=== PATIENT | male | born 1960 | race Caucasian/White ===

== ENCOUNTER → 2016-09-13 | Outpatient (CLI) | payer BC ==
--- NOTE | 2016-09-14 05:36 | PN ---
A 36-year-old male patient coming in for annual followup regarding obstructive sleep apnea treatment. The patient is on CPAP with a pressure of 12 cm of water. He was diagnosed having severe MICHELLE with an AHI of 70. On today's evaluation, the patient has lost around 19 pounds since his last evaluation last year. He was diagnosed having a left shoulder melanoma that was surgically resected. He was also diagnosed having diabetes mellitus currently on oral hypoglycemics and he was started on metformin. He is using his CPAP treatment every night. His CPAP use for the past 30 days 100% and he is averaging around 8.8 hours of CPAP use every night. Leak factor is around 16 L per minute and his AHI while on treatment is down to 0.3. He is requesting a heated hose. No other complaints otherwise for now. Waking up alert and refreshed during the day. He is averaging as much or more than 8 hours of sleep and CPAP use every night. No restlessness of the lower extremities. No night time chest pain, shortness of breath or heartburn. BP is 113/68. Pulse 102. Respirations 16. Temperature 97.8. Saturation is 97% on room air. BMI is 41.6. Height is 5 feet 9 inches. Weight is 282. GENERAL APPEARANCE: Calm, comfortable. HEENT: Short neck, crowding posterior pharynx. There is no goiter or neck masses. LUNGS: Diminished breath sounds, otherwise, clear. HEART: Sounds regular rate and rhythm, normal S1, S2. No S3, no murmurs. ABDOMEN: Soft, nontender. No organomegaly. EXTREMITIES: No edema, no cyanosis or clubbing. IMPRESSION: 1. Severe symptomatic obstructive sleep apnea, AHI of 70 with successful CPAP therapy at a pressure of 12 cm of water. 2. Obesity with an interval loss of 19 pounds. Current body mass index is 41.6. 3. Melanoma, recently diagnosed. Status post surgical resection. 4. New onset diabetes mellitus, currently on oral hypoglycemics. 5. Hypertension. PLAN: 1. Encourage further weight loss. 2. Continue the Simplus medium size full face mask. 3. Provide the patient heated hose and tubing. 4. Treatment is successful will continue to follow and make further recommendations based on his progress. See me back in a year's time in followup. FELA
== END | disposition home or self-care (01) ==
LOC: SLEEP 13:20
PROVIDERS: ATTEND Internal Medicine Critical Care Medicine
DX: G47.33 Obstructive sleep apnea (adult) (pediatric) (principal); E66.9 Obesity, unspecified; C43.9 Malignant melanoma of skin, unspecified; E11.9 Type 2 diabetes mellitus without complications; I10 Essential (primary) hypertension; Z68.41 Body mass index [BMI] 40.0-44.9, adult

== ENCOUNTER → 2020-03-16 | Outpatient (CLI) | payer BC ==
[2020-03-16 07:34] LABS: African American GFR (CKD) >90 (>60 ml/min/1.73 sqM); Blood Urea Nitrogen 18 mg/dL (9-20); Non-African American GFR(CKD) >90 (>60 ml/min/1.73 sqM)
--- NOTE | 2020-03-16 08:50 | CT ---
EXAMINATION TYPE: CT abdomen w con DATE OF EXAM: 03/16/2020 COMPARISON: None HISTORY: Renal Cyst CT DLP: 2613.3 mGycm CONTRAST: CT scan of the abdomen is performed without Oral Contrast and with IV Contrast, patient injected with 100 mL of Isovue 300. FINDINGS: LUNG BASES-: No visible nodule. No infiltrate. LIVER/GB: No calcified gallstones. No space occupying hepatic lesion. Biliary tree is of normal ca liber. There is evidence of hepatic steatosis. PANCREAS: No inflammation. No distinct mass. SPLEEN: No splenic enlargement. No lesion seen. ADRENALS: No nodule. No thickening. KIDNEYS/BLADDER: No hydronephrosis. No nephrolithiasis. Bilateral large parapelvic cysts are noted left greater than right. Parapelvic cysts on the left measures 7.9 x 7.8 cm and the right measuring 4 .5 x 4.3 cm. There is distortion of the renal collecting systems noted. No solid masses are detected. BOWEL: Normal appendix. Normal bowel caliber. No inflammation. LYMPH NODES: No greater than 1cm abdominal or pelvic lymph nodes are appreciated. AORTA: No significant abnormality. OSSEOUS STRUCTURES: Degenerative change thoracolumbar spine. OTHER: No significant additional abnormality is seen. IMPRESSION: 1. Bilateral parapelvic renal cysts left greater than right.
== END | disposition home or self-care (01) ==
LOC: RADCTMAIN 06:47
PROVIDERS: ATTEND Urology
DX: N28.1 Cyst of kidney, acquired (principal)
CPT/HCPCS: 82565; 84520; 74160; 36415; Q9967

== ENCOUNTER 2020-03-17 07:58 | Day surgery (SDC) | payer BC ==
[2020-03-17 08:29] LABS: Glucose,Whole Blood 131 mg/dL (75-99)
[2020-03-17 08:41] VITALS: TEMP 97.8
[2020-03-17] MEDS ORDERED: ALPRAZolam 0.5 MG TAB PO STA (09:11)
[2020-03-17 10:01] VITALS: RESP 16
--- NOTE | 2020-03-17 10:53 | CT ---
EXAMINATION TYPE: CT guided aspiration DATE OF EXAM: 03/17/2020 COMPARISON: CT 03/16/2020 HISTORY: Right parapelvic cyst, pain CT DLP: 1478 mGycm Automated exposure control for dose reduction was used. Procedure: After informed consent the skin overlying a suitable path to the parapelvic cysts in the r ight kidney was localized with CT and MRI skin prepped and draped. Lidocaine used for local anesthesi a. 19-gauge needle was advanced to the level of the parapelvic cysts, coaxial placement of 22-gauge n eedle was performed and approximately 12 cc of yellow fluid were aspirated. [place] were removed. Hem ostasis achieved. No immediate complication. Postprocedure imaging shows some decompression of the pa rapelvic cysts. This remained in stable condition. IMPRESSION: STATUS POST CT GUIDED ASPIRATION OF PARAPELVIC CYSTS IN THE RIGHT RENAL PELVIS. THIS PROCEDURE PERFOR MED BY THE UNDERSIGNED.
[2020-03-17 10:55] VITALS: BP 119/86; PULSE 88
== END 2020-03-17 10:40 | disposition home or self-care (01) ==
LOC: RADPROMAIN 07:58
PROVIDERS: ATTEND Urology
DX: N28.1 Cyst of kidney, acquired (principal); Z88.0 Allergy status to penicillin; Z88.2 Allergy status to sulfonamides; Z88.1 Allergy status to other antibiotic agents
CPT/HCPCS: 36415; 50390; 77012

== ENCOUNTER → 2021-11-02 | Outpatient (CLI) | payer BC ==
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
== END ==
LOC: SLEEP 13:19
PROVIDERS: ATTEND Internal Medicine Critical Care Medicine
DX: G47.33 Obstructive sleep apnea (adult) (pediatric) (principal); E66.9 Obesity, unspecified; Z99.89 Dependence on other enabling machines and devices; Z68.41 Body mass index [BMI] 40.0-44.9, adult; Z86.16 Personal history of COVID-19; I10 Essential (primary) hypertension; E11.9 Type 2 diabetes mellitus without complications; Z85.820 Personal history of malignant melanoma of skin; Z86.79 Personal history of other diseases of the circulatory system; Z88.1 Allergy status to other antibiotic agents; Z88.2 Allergy status to sulfonamides; E78.5 Hyperlipidemia, unspecified; M19.90 Unspecified osteoarthritis, unspecified site; Z87.891 Personal history of nicotine dependence; Z79.84 Long term (current) use of oral hypoglycemic drugs; Z79.899 Other long term (current) drug therapy
CPT/HCPCS: 99211

== ENCOUNTER → 2023-03-09 | Outpatient (CLI) | payer BC ==
[~2023-03-09] MED LIST: SODIUM CHLORIDE 0.9% 500 ML 500 ML in EMPTY BAG 1 BAG IV PRN; ZOLEDRONIC ACID 5 MG in SODIUM CHLORIDE 0.9% 100 ML IV NR
[2023-03-09 13:27] VITALS: BP 161/76; PULSE 89; RESP 16; TEMP 97.9
== END ==
LOC: PROCWHC3 12:31
PROVIDERS: ATTEND Internal Medicine
DX: M81.0 Age-related osteoporosis without current pathological fracture (principal)
CPT/HCPCS: 96365; J3489